=== PATIENT | female | born 1975 | race Caucasian/White ===

== ENCOUNTER → 2017-07-31 | Outpatient (CLI) | payer MEDICARE ==
[~2017-07-31] MED LIST: ALPR1TAB6 PO; ATOR40TA PO; CLON-365 PO; CLON2TAB2 PO; COLE1TAB5 PO; ESOM20CA PO; GABA-826 PO; HYDR25TA11 PO; LAMO25TA5 PO; LEVO50TA5 PO; LISI-167 PO; METF500T4 PO; MIRT30TA4 PO; MULT-658 PO; NORG1TAB6 PO; OMEP-110 PO; OXCA150T3 PO; OXYC500S PO; QUET300T5 PO; SUCR1ORA5 PO; SUVO10TA PO; TRAM50TA2 PO; VENL75CA PO
[2017-07-31 14:13] LABS: C-REACTIVE PROTEIN, QUANT 0.68 mg/dL (0.02-0.49)
== END ==
LOC: LAB 13:36
PROVIDERS: ATTEND Specialist
DX: M25.50 Pain in unspecified joint (principal)
CPT/HCPCS: 36415; 81374; 82085; 82550; 86140; 86376; 86800

== ENCOUNTER → 2017-10-20 | Outpatient (CLI) | payer MEDICARE ==
[~2017-10-20] MED LIST changes: -CLON-365 PO; +CLON1TAB4 PO; -CLON2TAB2 PO; +CLON2TAB9 PO; -METF500T4 PO; +METF500T5 PO
== END | disposition home or self-care (01) ==
LOC: RAD 15:34
PROVIDERS: ATTEND Specialist
DX: M54.5 Low back pain (principal); M25.50 Pain in unspecified joint
CPT/HCPCS: 72100; 72170

== ENCOUNTER → 2017-11-10 | Outpatient (CLI) | payer MEDICARE ==
[~2017-11-10] MED LIST changes: +METF500T17 PO; -METF500T5 PO
== END | disposition home or self-care (01) ==
LOC: CFH 14:48
PROVIDERS: ATTEND Specialist
DX: E78.2 Mixed hyperlipidemia (principal); M25.50 Pain in unspecified joint; E11.9 Type 2 diabetes mellitus without complications; F17.210 Nicotine dependence, cigarettes, uncomplicated
CPT/HCPCS: 72195

== ENCOUNTER → 2017-11-11 | Outpatient (CLI) | payer MEDICARE ==
[2017-11-11 16:17] LABS: ALBUMIN 3.2 g/dL (3.4-5.0); ANION GAP 8 mmol/L (5-15); CALCIUM 8.5 mg/dL (8.5-10.1); CHLORIDE 104 mmol/L (98-107)
[2017-11-11 16:20] LABS: ALANINE AMINOTRANSFERASE 16 U/L (12-78); ALKALINE PHOSPHATASE 63 U/L (45-117); BILIRUBIN,TOTAL 0.4 mg/dL (0.2-1.0); CREATININE 0.96 mg/dL (0.55-1.02); TOTAL PROTEIN 6.9 g/dL (6.4-8.2)
== END | disposition home or self-care (01) ==
LOC: CFH 14:27
PROVIDERS: ATTEND Internal Medicine Cardiovascular Disease
DX: I10 Essential (primary) hypertension (principal); E11.9 Type 2 diabetes mellitus without complications; E78.2 Mixed hyperlipidemia; F17.200 Nicotine dependence, unspecified, uncomplicated; R00.2 Palpitations; R06.02 Shortness of breath; R07.89 Other chest pain; M25.50 Pain in unspecified joint
CPT/HCPCS: 36415; 80053

== ENCOUNTER → 2017-11-25 | Outpatient (CLI) | payer MEDICARE | END | disposition home or self-care (01) | LOC: CFH 06:40 | PROVIDERS: ATTEND Internal Medicine Cardiovascular Disease | DX: R06.02 Shortness of breath (principal); R07.89 Other chest pain; E78.5 Hyperlipidemia, unspecified; E11.9 Type 2 diabetes mellitus without complications; R42 Dizziness and giddiness; R20.2 Paresthesia of skin; F17.200 Nicotine dependence, unspecified, uncomplicated | CPT/HCPCS: 78452; 93017; 93306; A9502 ==

== ENCOUNTER → 2018-01-22 | Outpatient (CLI) | payer MEDICARE ==
[~2018-01-22] MED LIST changes: +CLON1TAB11 PO; -CLON1TAB4 PO
[2018-01-22 15:53] LABS: BASOPHILS # (AUTO) 0.05 x10^3/uL (0-0.1); BASOPHILS % (AUTO) 0 % (0-1); EOSINOPHILS # (AUTO) 0.24 x10^3/uL (0-0.4); EOSINOPHILS % (AUTO) 2 % (1-7); LYMPHOCYTES # (AUTO) 2.67 x10^3/uL (1-3.4); LYMPHOCYTES % (AUTO) 19 % (22-44); MD NO; MEAN CORPUSCULAR HEMOGLOBIN 30.7 pg (27.0-34.8); MEAN CORPUSCULAR HGB CONC 33.8 g/dL (32.4-35.8); MEAN CORPUSCULAR VOLUME 90.9 fL (80-100); MEAN PLATELET VOLUME 9.8 fL (7.4-10.4); MONOCYTES # (AUTO) 0.47 x10^3/uL (0.2-0.8); MONOCYTES % (AUTO) 3 % (2-9); NEUTROPHILS # (AUTO) 10.37 x10^3/uL (1.8-6.8); NEUTROPHILS % (AUTO) 75 % (42-75); PLATELET COUNT 269 x10^3/uL (130-400); RED BLOOD COUNT 4.82 x10^6/uL (3.82-5.3); RED CELL DISTRIBUTION WIDTH 13.8 % (9.6-15.2)
[2018-01-22 16:01] LABS: ALBUMIN 3.3 g/dL (3.4-5.0); ANION GAP 8 mmol/L (5-15); CALCIUM 8.9 mg/dL (8.5-10.1); CHLORIDE 105 mmol/L (98-107)
[2018-01-22 16:10] LABS: ALANINE AMINOTRANSFERASE 22 U/L (12-78); ALKALINE PHOSPHATASE 77 U/L (45-117); BILIRUBIN,TOTAL 0.5 mg/dL (0.2-1.0); CHOL/HDL RATIO 2.9; CHOLESTEROL, TOTAL 154 mg/dL (140-239); CREATININE 0.72 mg/dL (0.55-1.02); HDL CHOL % 35 % (28-40); HDL CHOLESTEROL (DIRECT) 54 mg/dL (40-60); LDL CHOLESTEROL,CALCULATED 64 mg/dL (54-169); LDL/HDL RATIO 1.2 (0.5-3.0); T4 (THYROXINE) 11.2 mcg/dL (4.8-13.9); TOTAL PROTEIN 6.8 g/dL (6.4-8.2); TRIGLYCERIDES 181 mg/dL (50-200); VLDL CHOLESTEROL 36 mg/dL (0-25)
== END | disposition home or self-care (01) ==
LOC: CFH 11:52
PROVIDERS: ATTEND Nurse Practitioner Family
DX: E11.9 Type 2 diabetes mellitus without complications (principal); E78.2 Mixed hyperlipidemia; F17.200 Nicotine dependence, unspecified, uncomplicated; I10 Essential (primary) hypertension; R06.02 Shortness of breath; R07.89 Other chest pain
CPT/HCPCS: 36415; 80053; 80061; 84436; 84443; 84481; 85025

== ENCOUNTER → 2018-01-22 | Outpatient (CLI) | payer MEDICARE ==
[~2018-01-22] MED LIST changes: +OMNIPAQUE 350 MG/ML, 100ML BOTTLE ONE
== END | disposition home or self-care (01) ==
LOC: RAD 15:26
PROVIDERS: ATTEND Nurse Practitioner Family
DX: R06.02 Shortness of breath (principal)
CPT/HCPCS: 71275; Q9967

== ENCOUNTER 2018-02-26 10:54 | Day surgery (SDC) | payer MEDICARE ==
[~2018-02-26] VITALS: Ht 154.9 cm; Wt 77.3 kg
[~2018-02-26 10:54] MED LIST changes: -OMNIPAQUE 350 MG/ML, 100ML BOTTLE ONE
[2018-02-26] MEDS ORDERED: VERAPAMIL 2.5 MG/ML, 2ML ONE (12:16)
[2018-02-26] MEDS ORDERED: LIDOCAINE 1%, 20ML ONE (12:16)
[2018-02-26] MEDS ORDERED: FENTANYL PF 100 MCG/2ML ONE (12:16)
[2018-02-26] MEDS ORDERED: HEPARIN 1,000 UNITS/ML, 10ML ONE (12:18)
[2018-02-26] MEDS ORDERED: MIDAZOLAM 1 MG/ML, 2ML ONE ×2 (12:18→12:53)
[2018-02-26] MEDS ORDERED: RANI15SY PO (12:31)
[2018-02-26] MEDS ORDERED: LURA120T PO (12:31)
[2018-02-26] MEDS ORDERED: ACET-709 PO (12:31)
[2018-02-26] MEDS ORDERED: POTA8CAP PO (12:31)
[2018-02-26] MEDS ORDERED: ERGO500017 PO (12:31)
[2018-02-26] MEDS ORDERED: DEXL60CA2 PO (12:31)
[2018-02-26] MEDS ORDERED: DOXE10CA PO (12:31)
[2018-02-26] MEDS ORDERED: FLUD0.1T PO (12:31)
[2018-02-26] MEDS ORDERED: HYDR10TA11 PO (12:31)
[2018-02-26] MEDS ORDERED: FURO20TA3 PO (12:31)
[2018-02-26] MEDS ORDERED: ACETAMINOPHEN 325 MG TABLET ONE (14:48)
== END 2018-02-26 15:23 | disposition home or self-care (01) ==
LOC: CACL 10:54
PROVIDERS: ATTEND Internal Medicine Cardiovascular Disease
DX: R07.9 Chest pain, unspecified (principal); I10 Essential (primary) hypertension; E11.9 Type 2 diabetes mellitus without complications; F41.9 Anxiety disorder, unspecified; F31.9 Bipolar disorder, unspecified; E03.9 Hypothyroidism, unspecified; E78.5 Hyperlipidemia, unspecified; Z79.899 Other long term (current) drug therapy; Z98.890 Other specified postprocedural states
CPT/HCPCS: 36415; 84703; 93458; 99156; C1769; C1894; J1644; J2250; J3010; J3490; Q9967

== ENCOUNTER 2020-01-13 19:12 | Emergency (ER) | payer MEDICARE ==
[~2020-01-13] VITALS: Ht 154.9 cm; Wt 88.0 kg
[~2020-01-13 19:12] MED LIST changes: -GADOTERATE 10 MMOL/20 ML SYR ONE
--- NOTE | 2020-01-13 20:01 | NUR ---
PT WITH DIZZINESS, N/V AND HEADACHE. STATES HAD MRI TODAY TO R/O PREVIOUS CVA, VERTIGO, MIGRAINE DISORDER DOES NOT KNOW RESULTS. TOOK MECLIZINE AND ZOFRAN HOWEVER DID NOT HELP, FEELS LIKE ROOM SPINNING WORSE WHEN OPENS EYES. EQUAL SCREWHEAD POLISHER, STEADY GAIT. EKG WAS DONE AT TRIAGE.
[2020-01-13] MEDS ORDERED: SODIUM CHLORIDE 0.9% 1,000ML IVBOLUS ONE (20:30)
[2020-01-13] MEDS ORDERED: SODIUM CHLORIDE FLUSH 10ML SYR IVF ONE (20:30)
--- NOTE | 2020-01-13 20:43 | NUR ---
multiple iv attempts unable to obtain. informed erp, will wait for blood work and re-assess. ERP at bedside now.
[2020-01-13 20:47] LABS: BASOPHILS % (AUTO) 1 % (0-1); EOSINOPHILS % (AUTO) 3 % (1-7); LYMPHOCYTES % (AUTO) 37 % (22-44); MEAN CORPUSCULAR HEMOGLOBIN 26.2 pg (27.0-34.8); MEAN CORPUSCULAR HGB CONC 32.3 g/dL (32.4-35.8); MEAN PLATELET VOLUME 8.5 fL (7.4-10.4); MONOCYTES % (AUTO) 6 % (2-9); NEUTROPHILS % (AUTO) 53 % (42-75); PLATELET COUNT 308 x10^3/uL (130-400); RED BLOOD COUNT 4.52 x10^6/uL (3.82-5.3); RED CELL DISTRIBUTION WIDTH 17.1 % (9.6-15.2)
[2020-01-13 20:51] LABS: MD NO
[2020-01-13 20:55] LABS: ALANINE AMINOTRANSFERASE 17 U/L (12-78); ALBUMIN 3.2 g/dL (3.4-5.0); ANION GAP 6 mmol/L (5-15); CALCIUM 8.6 mg/dL (8.5-10.1); CHLORIDE 104 mmol/L (98-107); CREATININE 0.92 mg/dL (0.55-1.02)
[2020-01-13 20:57] LABS: ALKALINE PHOSPHATASE 75 U/L (45-117); BILIRUBIN,TOTAL 0.2 mg/dL (0.2-1.0); TOTAL PROTEIN 7.4 g/dL (6.4-8.2)
[2020-01-13] MEDS ORDERED: ACETAMINOPHEN 500 MG TABLET PO ONE (21:00)
[2020-01-13] MEDS ORDERED: DIPHENHYDRAMINE 25 MG CAPSULE PO ONE (21:00)
[2020-01-13] MEDS ORDERED: ONDANSETRON ODT 4 MG PO ONE (21:00)
[2020-01-13] MEDS ORDERED: PROCHLORPERAZINE 10MG TABLET PO ONE (21:00)
[2020-01-13] MEDS ORDERED: DIPHENHYDRAMINE 50 MG CAPSULE ONE (21:09)
[2020-01-13] MEDS ORDERED: ONDANSETRON ODT 4 MG ONE (21:10)
[2020-01-13] MEDS ORDERED: ACETAMINOPHEN 500 MG TABLET ONE (21:10)
[2020-01-13] MEDS ORDERED: PROCHLORPERAZINE 10MG TABLET ONE (21:10)
--- NOTE | 2020-01-13 21:39 | NUR ---
IVF INFUSING. VSS.
--- NOTE | 2020-01-13 21:53 | NUR ---
PT HAS BEEN COMMUNICATING WITH MOTHER AT BEDSIDE WITH NO PROBLEMS, NOTED: PT ALSO WAS ON PHONE WITH SOMEONE WHEN THIS CRITICAL CARE CNS ENTERED ROOM. PT STATES SHE HAS HAD LITTLE IMPROVEMENT, VSS. IVF INFUSING. PT ADELE, GOES FROM TALKING NORMAL TO NOT ANSWERING QUESTIONS AND MOTHER ANSWERING FOR HER.
[2020-01-13] MEDS ORDERED: HALOPERIDOL 2 MG TABLET PO ONE (22:00)
[2020-01-13] MEDS ORDERED: HALOPERIDOL 5 MG TABLET ONE (22:04)
--- NOTE | 2020-01-13 22:09 | NUR ---
PT ADELE, WAS MOVING ARMS BACK AND FORTH TALKING TO MOTHER.
--- NOTE | 2020-01-13 22:24 | NUR ---
ER PHYSICIAN TO SEE PT. VSS.
[2020-01-13] MEDS ORDERED: HALOPERIDOL 5 MG TABLET PO ONE (22:30)
[2020-01-13 22:35] VITALS: BP 110/71
--- NOTE | 2020-01-13 22:43 | NUR ---
IV DC CATH INTACT, PT THREW HER CANE ACCIDENTLY AND THEN WAS ABLE TO CATCH IT WITH THE BOTH ARMS, FULL STRENGTH. WITNESSED GETTING INTO WC, PUSHING A CHAIR OUT OF WAY AND PUSHING A PT SCREEN DIVIDER OUT OF WAY WHILE GETTING TO BATHROOM.
--- NOTE | 2020-01-13 22:44 | NUR ---
DC PAPERS GIVEN WITH RX AFTER PT AND MOTHER HAD DETAILED DISCUSSION WITH ER PHYSICIAN REGARDING CARE RECEIVED IN ER. PT MOTHER AND PT VERBALIZE UNDERTSTANDING OF FU WITH HER PCP. VSS.
--- NOTE | 2020-01-13 22:57 | NUR ---
PT REFUSING TO LEAVE, ESCALATED TO PROSTHETIC TECHNICIAN LEVEL.
--- NOTE | 2020-01-13 23:29 | NUR ---
PLAYERS ASSISTANT RN: THIS PLAYERS ASSISTANT SPOKE AT LENGTH WITH PATIENT REGARDING POC. RN REASSURED PATIENT OF POC AND NEED FOR F/U. DISCUSSED THE NEGATIVE RESULTS OF AN MRI AND CT SCAN AND LAB RESULTS AT FACILITIES INCLUDING [facility] AND THE IMPORTANCE OF F/U WITH A SPECIALIST. RN ALSO REITERATED PAPERWORK AND WHEN TO RETURN TO ER. PER PT AND HER FRIEND AT BEDSIDE, THE FRIEND AND BOTH LIVE WITH PATIENT. FRIEND AND PT VERBALIZED UNDERSTANDING OF PAPERWORK. PT AO X 4. SKIN PWD. PERRLA. SPEECH CLEAR. PT REQUESTED PAIN MEDICATION PRIOR TO DISCHARGE. SUP RN DISCUSSED RX THAT PT WAS BEING SENT HOME WITH AND ALSO REMINDED THAT PT HAD ALREADY RECIEVED APPROPRIATE MEDICATIONS FOR PAIN AND NAUSEA. PT AND FRIEND VERBALIZED UNDERSTANDING.
--- NOTE | 2020-01-13 23:35 | NUR ---
PT AND MOTHER SPOKE WITH SONNY CAPACITY PLANNING ANALYST. RX, INSTRUCT WERE PROVIDED.
== END 2020-01-13 23:39 | disposition home or self-care (01) ==
LOC: ED 20:31
DX: G43.109 Migraine with aura, not intractable, without status migrainosus (principal); F44.9 Dissociative and conversion disorder, unspecified; R42 Dizziness and giddiness; R11.2 Nausea with vomiting, unspecified; I10 Essential (primary) hypertension; E11.9 Type 2 diabetes mellitus without complications; E03.9 Hypothyroidism, unspecified; Z90.49 Acquired absence of other specified parts of digestive tract
CPT/HCPCS: 36415; 80053; 85025; 93005; 99284; Q0162; Q0163; Q0164

== ENCOUNTER → 2020-01-13 | Outpatient (CLI) | payer MEDICARE ==
[~2020-01-13] MED LIST changes: +ACET-709 PO; +DEXL60CA2 PO; +DOXE10CA PO; +ERGO500017 PO; +FLUD0.1T PO; +FURO20TA3 PO; +GADOTERATE 10 MMOL/20 ML SYR ONE; +HYDR-3590 PO; +HYDR-826 PO; -HYDR25TA11 PO; +LURA120T PO; +POTA8CAP20 PO; +RANI15SY PO
== END | disposition home or self-care (01) ==
LOC: RAD 17:23
PROVIDERS: ATTEND Family Medicine
DX: G43.909 Migraine, unspecified, not intractable, without status migrainosus (principal)
CPT/HCPCS: 70553; A9575